=== PATIENT | female | born 1995 | race African-American/Black ===

== ENCOUNTER 2017-03-13 12:05 | Emergency (ER) | payer MEDICAID ==
[~2017-03-13] VITALS: Ht 162.6 cm; Wt 61.4 kg
[~2017-03-13 12:05] MED LIST: IBUP-1986 PO
[2017-03-13] MEDS ORDERED: acetaminophen 325mg tablet PO ONE (13:00)
[2017-03-13] MEDS ORDERED: ondansetron 4mg rapidly disintigrating tab PO ONE (14:40)
[2017-03-13] MEDS ORDERED: ketorolac trometh. 30mg/ml inj. IM ONE (14:40)
[2017-03-13] MEDS ORDERED: ALBU8.5H8 INH (15:30)
[2017-03-13] MEDS ORDERED: ONDA4TAB12 PO (15:30)
[2017-03-13] MEDS ORDERED: GUAI120015 PO (15:30)
[2017-03-13] MEDS ORDERED: BENZ-38 PO (15:30)
[2017-03-13 15:54] VITALS: BP 111/79
== END 2017-03-13 15:57 | disposition home or self-care (01) ==
LOC: ER 12:07
DX: R50.9 Fever, unspecified (principal); F17.200 Nicotine dependence, unspecified, uncomplicated; F12.10 Cannabis abuse, uncomplicated; Z88.0 Allergy status to penicillin
CPT/HCPCS: 71045; 96372; 99283; J1885

== ENCOUNTER 2017-05-24 20:22 | Emergency (ER) | payer MEDICAID, OTHER ==
[~2017-05-24] VITALS: Ht 160 cm; Wt 61.3 kg
[~2017-05-24 20:22] MED LIST changes: +ALBU8.5H8 INH; +GUAI120015 PO; +ONDA4TAB12 PO
[2017-05-24 21:11] VITALS: BP 121/82
[2017-05-24] MEDS ORDERED: TETanus/Pertussis (Acell)/Diphther VAC/PF (Tdap-Adult) 0.5ml syringe IM ONE (21:20)
[2017-05-24] MEDS ORDERED: BUPIVAcaine/PF 2.5 mg/ml (0.25%) 30ml vial IJ ONE (21:20)
[2017-05-24] MEDS ORDERED: IBUP-1984 PO (23:29)
== END 2017-05-25 00:02 | disposition home or self-care (01) ==
LOC: ER 20:23
DX: S01.01XA Laceration without foreign body of scalp, initial encounter (principal); M25.532 Pain in left wrist; M79.672 Pain in left foot; F12.10 Cannabis abuse, uncomplicated; Z88.0 Allergy status to penicillin; W01.0XXA Fall on same level from slipping, tripping and stumbling without subsequent striking against object, initial encounter; Y93.89 Activity, other specified; Y92.89 Other specified places as the place of occurrence of the external cause; Y99.9 Unspecified external cause status
CPT/HCPCS: 12002; 29125; 73110; 73630; 99284; A6449; J3490; 90715

== ENCOUNTER 2017-05-28 20:02 | Emergency (ER) | payer OTHER, MEDICAID ==
[~2017-05-28] VITALS: Ht 160 cm; Wt 65.2 kg
[~2017-05-28 20:02] MED LIST changes: +IBUP-1984 PO
[2017-05-28 21:41] VITALS: BP 146/89
== END 2017-05-28 21:43 | disposition home or self-care (01) ==
LOC: ER 20:03
DX: S06.0X0A Concussion without loss of consciousness, initial encounter (principal); F12.10 Cannabis abuse, uncomplicated; J45.909 Unspecified asthma, uncomplicated; Z88.0 Allergy status to penicillin; W22.8XXA Striking against or struck by other objects, initial encounter; Y93.89 Activity, other specified; Y92.89 Other specified places as the place of occurrence of the external cause; Y99.8 Other external cause status
CPT/HCPCS: 99281

== ENCOUNTER 2017-12-14 17:57 | Emergency (ER) | payer MEDICAID ==
[~2017-12-14] VITALS: Ht 160 cm; Wt 61.4 kg
[~2017-12-14 17:57] MED LIST changes: +DOCU-28 PO; -IBUP-1984 PO
[2017-12-14 18:42] LABS: BASOPHILS % (AUTO) 0 % (0-1); EOSINOPHILS % (AUTO) 0 % (0-6); HEMATOCRIT 44.2 % (35.0-45.0); HEMOGLOBIN 14.5 g/dl (12.0-16.0); LYMPHOCYTES # (AUTO) 0.9 X10'3 (1.1-4.8); LYMPHOCYTES % (AUTO) 3.3 % (21-51); MEAN CORPUSCULAR HEMOGLOBIN 29.9 PG (27.0-31.0); MEAN CORPUSCULAR HGB CONC 32.9 % (33.0-36.5); MEAN CORPUSCULAR VOLUME 91.1 FL (78-98); MEAN PLATELET VOLUME 10.3 FL (7.4-10.4); MONOCYTES # (AUTO) 0.5 X10'3 (0-0.9); MONOCYTES % (AUTO) 1.7 % (2-12); NEUTROPHILS # (AUTO) 26.4 X10'3 (1.8-7.7); PLATELET COUNT 201 X10'3 (140-440); RED BLOOD COUNT 4.85 X10'6 (4.20-5.60); RED CELL DISTRIBUTION WIDTH 14.5 % (11.5-14.5)
[2017-12-14 18:49] LABS: WHITE BLOOD COUNT 27.7 X10'3 (4.5-11.0)
[2017-12-14 18:58] LABS: COLOR,URINE YELLOW (Yellow); GLUCOSE, URINE NEGATIVE (Neg); KETONES,URINE NEGATIVE (Neg); LEUKOCYTE ESTERASE ,URINE TRACE (Neg); NITRITES, URINE NEGATIVE (Neg); OCCULT BLOOD,URINE TRACE-INTACT (Neg); PROTEIN,URINE 30 mg/dl (Neg)
[2017-12-14 18:59] LABS: URINE HCG NEGATIVE (NEG)
[2017-12-14 19:07] LABS: PLATELET ESTIMATE NORMAL; TOTAL CELLS COUNTED 100
[2017-12-14 19:09] LABS: UA COLLECTION TYPE CLN CATCH MIDSTREAM
[2017-12-14 19:10] LABS: BACTERIA,URINE FEW /HPF (Neg); CLARITY,URINE SLIGHTLY CLOUDY (Clear); MUCUS STRANDS MANY /LPF (Neg); RBC,URINE 0-2 /HPF (0-2); SQUAMOUS EPITHELIAL CELL,UR FEW /LPF (FEW); WBC,URINE 20-30 /HPF (0-4)
[2017-12-14 19:11] LABS: ALANINE AMINOTRANSFERASE 18 U/L (12-78); ALBUMIN 3.5 G/DL (3.4-5.0); ALBUMIN/GLOBULIN RATIO 0.8 (1.1-1.5); ALKALINE PHOSPHATASE 103 IU/L (46-116); ANION GAP 11 (8-16); ASPARTATE AMINO TRANSFERASE 13 U/L (10-37); BILIRUBIN,TOTAL 0.6 MG/DL (0.1-1.0); BLOOD UREA NITROGEN 15 MG/DL (7-18); BUN/CREATININE RATIO 17.4 (6.6-38.0); CALCIUM 8.6 MG/DL (8.5-10.1); CHLORIDE 98 MMOL/L (99-107); CREATININE 0.86 MG/DL (0.40-0.90); GLUCOSE 83 MG/DL (70-104); SODIUM 133 MMOL/L (135-145); TOTAL CARBON DIOXIDE 23.9 MMOL/L (24-32); TOTAL PROTEIN 7.9 G/DL (6.4-8.2); eGFR > 90 ML/MIN
[2017-12-14 19:15] LABS: INR 1.2 INR; PROTHROMBIN TIME 12.8 SECONDS (9.0-12.0)
[2017-12-14] MEDS ORDERED: normal saline 1000ml 1,000 ML IV ONE (19:20)
[2017-12-14] MEDS ORDERED: ketorolac trometh. 30mg/ml inj. IV ONE (19:20)
[2017-12-14] MEDS ORDERED: morphine 2 MG/ML inj. syringe IV ONE (19:20)
[2017-12-14] MEDS ORDERED: iohexol 300mg/ml 100ml inj. ONE (19:35)
[2017-12-14 20:15] VITALS: BP 119/67
[2017-12-14] MEDS ORDERED: doxycycline hyclate 100mg tablet.DR PO STA (20:54)
[2017-12-14] MEDS ORDERED: metroNIDAZOLE 500mg tablet PO ONE (20:55)
[2017-12-14] MEDS ORDERED: CefTRIAXone 250MG IM Kit w/LIDOcaine IM ONE (20:55)
[2017-12-14] MEDS ORDERED: METR500T PO (20:58)
[2017-12-14] MEDS ORDERED: DOXY100C43 PO (20:58)
[2017-12-14] MEDS ORDERED: DOXYCYCLINE 100MG CAPSULE PO STA (21:38)
== END 2017-12-14 21:39 | disposition left against medical advice (07) ==
LOC: ER 17:58
DX: N73.9 Female pelvic inflammatory disease, unspecified (principal); J45.909 Unspecified asthma, uncomplicated; F12.90 Cannabis use, unspecified, uncomplicated; Z88.0 Allergy status to penicillin
CPT/HCPCS: 36415; 74177; 80053; 81001; 81025; 83605; 85025; 85610; 87040; 87088; 96372; 96374; 96375; 99285; J0696; J1885; J2270; J3490; Q9967

== ENCOUNTER 2019-09-08 19:58 | Emergency (ER) | payer MEDICAID ==
[~2019-09-08] VITALS: Ht 160 cm; Wt 70.5 kg
[2019-09-08 20:18] VITALS: BP 115/45
[2019-09-08] MEDS ORDERED: LIDOcaine 1% W/epiNEPHrine 1:200,000 10ml vial IJ ONE (21:15)
[2019-09-08] MEDS ORDERED: DOXY100C43 PO (21:22)
[2019-09-08] MEDS ORDERED: LORazepam 2 mg/ml vial IM ONE (21:55)
[2019-09-08] MEDS ORDERED: ibuprofen tablet 400 MG TABLET PO ONE (21:55)
--- NOTE | 2019-09-08 22:12 | NUR ---
ativan held as patient has no ride home.
== END 2019-09-08 22:14 | disposition home or self-care (01) ==
LOC: ER 19:59
DX: L02.415 Cutaneous abscess of right lower limb (principal); M79.89 Other specified soft tissue disorders; J45.909 Unspecified asthma, uncomplicated; F12.90 Cannabis use, unspecified, uncomplicated; Z86.14 Personal history of Methicillin resistant Staphylococcus aureus infection; Z72.89 Other problems related to lifestyle; Z88.0 Allergy status to penicillin; Z79.2 Long term (current) use of antibiotics; Z79.899 Other long term (current) drug therapy
CPT/HCPCS: 96374; 99283

== ENCOUNTER 2021-08-30 17:49 | Emergency (ER) | payer MEDICAID ==
[~2021-08-30] VITALS: Ht 157.5 cm; Wt 64.0 kg
[~2021-08-30 17:49] MED LIST changes: +ALBU8.5H17 INH; -ALBU8.5H8 INH
[2021-08-30 18:22] VITALS: BP 114/82
== END 2021-08-30 19:07 | disposition home or self-care (01) ==
LOC: ER 17:50
DX: S00.81XA Abrasion of other part of head, initial encounter (principal); R07.89 Other chest pain; J45.909 Unspecified asthma, uncomplicated; F12.90 Cannabis use, unspecified, uncomplicated; Z86.14 Personal history of Methicillin resistant Staphylococcus aureus infection; Z72.89 Other problems related to lifestyle; Z88.0 Allergy status to penicillin; Z79.899 Other long term (current) drug therapy; X58.XXXA Exposure to other specified factors, initial encounter; Y93.89 Activity, other specified; Y92.89 Other specified places as the place of occurrence of the external cause; Y99.8 Other external cause status
CPT/HCPCS: 73030; 99284

== ENCOUNTER 2022-11-10 22:53 | Emergency (ER) | payer MEDICAID ==
[~2022-11-10] VITALS: Ht 160 cm; Wt 75.0 kg
[2022-11-10 23:11] VITALS: BP 120/65; PULSE 86; RESP 18; TEMP 98.4; O2SAT 97
[2022-11-10] MEDS ORDERED: ibuprofen tablet 400 MG TABLET PO ONE (23:50)
[2022-11-10] MEDS ORDERED: dexamethasone 4mg tablet PO ONE (23:50)
[2022-11-10] MEDS ORDERED: clindamycin 150mg capsule PO ONE (23:50)
[2022-11-10] MEDS ORDERED: IBUP-1985 PO ×2 (23:51)
[2022-11-10] MEDS ORDERED: CLIN300C3 PO ×2 (23:51)
[2022-11-11] MEDS ORDERED: CLIN300C3 PO (00:14)
[2022-11-11] MEDS ORDERED: IBUP-1985 PO (00:14)
== END 2022-11-11 00:22 | disposition home or self-care (01) ==
LOC: ER 22:54
DX: K08.89 Other specified disorders of teeth and supporting structures (principal); J45.909 Unspecified asthma, uncomplicated; F12.10 Cannabis abuse, uncomplicated; Z86.14 Personal history of Methicillin resistant Staphylococcus aureus infection; Z88.0 Allergy status to penicillin; Z79.899 Other long term (current) drug therapy
CPT/HCPCS: 99284

== ENCOUNTER 2024-01-10 11:20 | Emergency (ER) | payer MEDICAID ==
[~2024-01-10] VITALS: Ht 160 cm; Wt 58.2 kg
[~2024-01-10 11:20] MED LIST changes: +CLIN300C3 PO; +IBUP-1985 PO; +ONDA-243 PO; -ONDA4TAB12 PO
[2024-01-10 11:51] VITALS: BP 134/78; PULSE 102; RESP 16; TEMP 98; O2SAT 100
== END 2024-01-10 13:41 | disposition home or self-care (01) ==
LOC: ER 11:20
DX: R07.89 Other chest pain (principal); F41.9 Anxiety disorder, unspecified; J45.909 Unspecified asthma, uncomplicated; F12.90 Cannabis use, unspecified, uncomplicated; Z88.0 Allergy status to penicillin; Z79.899 Other long term (current) drug therapy
CPT/HCPCS: 99283